=== PATIENT | male | born 1955 | race Caucasian/White ===

== ENCOUNTER 2023-10-10 22:36 | Emergency (ER) | payer MEDICARE, SELFPAY ==
--- NOTE | 2023-10-10 22:36 | ECG_ITS ---
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 Measurements Intervals [place] Rate: 68 P: 32 [place]: 146 QRS: -34 QRSD: 120 T: 58 QT: 389 QTc: 415 Interpretive Statements SINUS RHYTHM LEFT AXIS DEVIATION [QRS AXIS < -30] MODERATE INTRAVENTRICULAR CONDUCTION DELAY [110+ ms QRS DURATION] No previous ECG available for comparison Electronically Signed On 10-11-2023 0:10:06 CDT by Soo Diaz M.D. [email or web address]
--- NOTE | 2023-10-10 22:39 | XRR_ITS ---
PROCEDURE INFORMATION: Exam: XR Chest Exam date and time: 10/10/2023 10:56 PM Age: 68 years old Clinical indication: Angina; Additional info: Cp TECHNIQUE: Imaging protocol: Radiologic exam of the chest. Views: 1 view. COMPARISON: No relevant prior studies available. FINDINGS: Lungs: Unremarkable. No consolidation. Pleural spaces: Unremarkable. No pleural effusion. No pneumothorax. Heart/Mediastinum: Unremarkable. No cardiomegaly. Vasculature: Aortic arch calcifications. Bones/joints: Mild degenerative disease of bilateral acromioclavicular joints. Mild curvature of the thoracic spine convex to the right. XR/XR chest 1V portable [id number] IMPRESSION: No acute cardiopulmonary process.
[2023-10-10 22:40] VITALS: BP 135/74; PULSE 71; RESP 16; TEMP 36.5; O2SAT 95
--- NOTE | 2023-10-10 22:48 | ED_ITS ---
HPI - Chest Pain 2 General: Chief Complaint: Chest Pain Stated Complaint: chest pain and center of back Time Seen by Provider: 10/10/23 22:40 Source: patient Mode of arrival: ambulatory Limitations: no limitations History of Present Illness: 68-year-old male states been having some exertional chest pain throughout the day states left-sided is sharp in nature states he did hurt having worse pain this evening is since improved currently 2 out of 10 he denies any shortness of breath denies any nausea has a history of diabetes he is a non-smoker no known history of coronary artery disease Associated symptoms: Deny abdominal pain, dyspnea, fever(s), nausea or vomiting Review of Systems 2 Const: Denies: fever(s), chills, body aches or change in appetite ENMT: Denies: throat pain or dental pain Card: Reports: chest pain Resp: Denies: dyspnea GI: Denies: abdominal pain, nausea, vomiting or diarrhea Musc: Denies: neck pain or back pain Skin/Breast: Denies: rash Neuro: Denies: headache(s) Physical Exam 2 Const: COMMON NORMALS: no acute distress, patient oriented x3 and healthy appearing HENMT: COMMON NORMALS: normocephalic and atraumatic HEAD & SCALP: n ormocephalic and atraumatic Eye: COMMON NORMALS: Equal, round and reactive pupils present and EOMs intact bilaterally PUPIL: Yes Equal, round and reactive pupils present Neck/C-Spine: COMMON NORMALS: full ROM and supple Chest: COMMONS NORMALS: normal inspection of the chest and normal palpation of entire chest wall Resp: COMMON NORMALS: normal respiratory effort, No retractions, No use of accessory muscles and clear to auscultation bilaterally AUSCULTATION: clear to auscultation bilaterally Cardio: COMMON NORMALS: regular rate, regular rhythm and No murmurs present (Cardio) RATE: regular rate RHYTHM: regular rhythm GI: COMMON NORMALS: Normal to inspection, nondistended, normoactive bowel sounds present, Soft to palpation, non-tender and no masses PALPATION: Yes Soft to palpation Extremity: COMMON NORMALS: normal to inspection and full ROM Neuro: COMMON NORMALS: patient oriented x3, moves all extremities and no focal motor deficits Psych: COMMON NORMALS: mental status grossly normal, Normal thought process present and cooperative THOUGHT PROCESS: Normal thought process present Skin: COMMON NORMALS: no rashes or lesions noted and no wounds GENERAL SKIN EXAM: no rashes or lesions noted Course 2 Vital Signs: Vital signs: Vital Signs Temperature 97.7 F 10/10/23 22:40 Pulse Rate 60 10/11/23 00:56 Respiratory Rate 18 10/11/23 00:56 Blood Pressure 129/70 10/11/23 00:56 Pulse Oximetry 95 10/11/23 00:56 Oxygen Delivery Me thod Room Air 10/11/23 00:56 MDM - Chest Pain Medical Decision Making Patient presents for chest pain is had no chest pain here initial repeat troponins here are negative he has no signs of pulmonary embolism or aortic dissection he is stable for discharge she is follow-up with PCP he is return if worsening he understands agrees to plan. Medical Records I reviewed the patient's medical records. Lab Data I reviewed the patient's lab results. 10/10/23 22:57 10/10/23 22:57 Radiology Impressions Chest X-Ray 10/10/23 22:39 IMPRESSION: No acute cardiopulmonary process. Laboratory Results WBC 6.93 10^3/uL (3.29-11.43) 10/10/23 22:57 RBC 4.29 10^6/uL (3.85-5.65) 10/10/23 22:57 Hgb 12.40 g/dL (11.27-16.99) 10/10/23 22:57 Hct 37.6 % (37-53) 10/10/23 22:57 MCV 87.6 fl (82-101) 10/10/23 22:57 MCH 28.9 pg (27-33) 10/10/23 22:57 MCHC 33.0 g/dL (30-55) 10/10/23 22:57 RDW 12.6 % (12.1-15.1) 10/10/23 22:57 Plt Count 238 10^3/cmm (157-399) 10/10/23 22:57 MPV 9.4 fL (7.4-10.4) 10/10/23 22:57 Neut % (Auto) 44.3 % 10/10/23 22:57 Lymph % (Auto) 36.8 % 10/10/23 22:57 [place] % (Auto) 10.8 % 10/10/23 22:57 Eos % (Auto) 5.9 % 10/10/23 22:57 Baso % (Auto) 0.6 % 10/10/23 22:57 Neut # (Auto) 3.07 10^3/uL (1.8-7.7) 10/10/23 22:57 Lymph # (Auto) 2.6 10^3/uL (0.8-4.8) 10/10/23 22:57 [place] # (Auto) 0.8 10^3/uL (0.2-0.9) 10/10/23 22:57 Eos # (Auto) 0.4 10^3/uL (0.0-0.8) 10/10/23 22:57 Baso # (Auto) 0.0 10^3/uL (0.0-0.1) 10/10/23 22:57 Nucleated RBC % (auto) 0 % 10/10/23 22:57 Nucleated RBCs # 0.0 /100WBC 10/10/23 22:57 Sodium 134 mmol/L (136-145) L 10/10/23 22:57 Potassium 3.6 mmol/L (3.5-5.1) 10/10/23 22:57 Chloride 97 mmol/L (98-107) L 10/10/23 22:57 Carbon Dioxide 26 mmol/L (22-29) 10/10/23 22:57 Anion Gap 14.6 (5-19) 10/10/23 22:57 BUN 11 mg/dL (8-23) 10/10/23 22:57 Creatinine 1.0 mg/dL (0.7-1.2) 10/10/23 22:57 GFR Calculation 74.5 mL/min (90-130) L 10/10/23 22:57 Glucose 167 mg/dL (65-115) H 10/10/23 22:57 Calculated Osmolality 281 mOsm/kg (285-295) L 10/10/23 22:57 Calcium 9.2 mg/dL (8.5-10.5) 10/10/23 22:57 Total Bilirubin 0.3 mg/dL (0.15-1.2) 10/10/23 22:57 AST 13 U/L (0-40) 10/10/23 22:57 ALT 12 U/L (0-41) 10/10/23 22:57 Alkaline Phosphatase 83 U/L (40-130) 10/10/23 22:57 Troponin T Baseline 10 ng/L (0-15) 10/10/23 22:57 Troponin T 120 Minute 9.23 ng/L (0-15) 10/11/23 00:26 Delta Troponin T -0.77 ABS# (0-10) L 10/11/23 00:26 Total Protein 6.4 g/dL (6.6-8.7) L 10/10/23 22:57 Albumin 4.1 g/dL (3.5-5.2) 10/10/23 22:57 Globulin 2.3 g/dL (1.3-4.6) 10/10/23 22:57 Lipase 43 U/L (13-60) 10/10/23 22:57 All radiology interpretation(s) finalized by discharge EKG Data EKG 1: I personally reviewed and interpreted this EKG as follows: EKG interpretation date: 10/10/23 EKG interpretation time: 22:36 Interpretation: nsr hr [address] or t wave abnormalities qrs 120 qtc 406 EKG 2: I personally reviewed and interpreted this EKG as follows: EKG interpretation date: 10/11/23 EKG interpretation time: 00:40 Interpretation: sinus marcela hr [address] elevation qrs 120 qtc 421 Discharge Plan Discharge Patient Disposition: Home Clinical Impression: Chest pain Condition: Stable Discharge Orders: Discharge ED (Routine); Ordered 10/11/23 Ordered By: Bill Cruz Referrals: Ryanne Estrella MD [Family Provider] - Kay Bills FNP [Primary Care Provider] - 1-3 days Discharge Diet: Advance as tolerated Discharge Activity: Resume usual activity Patient Instructions: Chest Pain (ED) Coding Level of Care Code ED [employer] Teacher for Gio Molina
[2023-10-10] MEDS: aspirin 81 mg Chew Tablet 324 MG PO (22:52)
[2023-10-10 22:59] VITALS: BP 130/71; PULSE 74; RESP 21; O2SAT 95
[2023-10-10 23:04] LABS: Basophils % 0.6 %; Eosinophils # 0.4 10^3/uL (0.0-0.8); Eosinophils % 5.9 %; Hematocrit 37.6 % (37-53); Lymphocytes # 2.6 10^3/uL (0.8-4.8); Lymphocytes % 36.8 %; Mean Corpuscular Hemoglobin 28.9 pg (27-33); Mean Corpuscular Volume 87.6 fl (82-101); Mean Platelet Volume 9.4 fL (7.4-10.4); Monocytes # 0.8 10^3/uL (0.2-0.9); Monocytes % 10.8 %; Neutrophils # 3.07 10^3/uL (1.8-7.7); Neutrophils % 44.3 %; Nucleated Red Blood Cells % 0 %; Platelet Count 238 10^3/cmm (157-399); Red Blood Count 4.29 10^6/uL (3.85-5.65); Red Cell Distribution Width 12.6 % (12.1-15.1); White Blood Count 6.93 10^3/uL (3.29-11.43)
[2023-10-10 23:22] LABS: Troponin(5th) Baseline 10 ng/L (0-15)
[2023-10-10 23:42] LABS: Alanine Aminotransferase 12 U/L (0-41); Albumin Level 4.1 g/dL (3.5-5.2); Alkaline Phosphatase 83 U/L (40-130); Anion Gap 14.6 (5-19); Aspartate Amino Transferase 13 U/L (0-40); Blood Urea Nitrogen 11 mg/dL (8-23); Calcium 9.2 mg/dL (8.5-10.5); Carbon Dioxide 26 mmol/L (22-29); Chloride 97 mmol/L (98-107); Globulin 2.3 g/dL (1.3-4.6); Glomerular Filtration Rate 74.5 mL/min (90-130); Glucose 167 mg/dL (65-115); Lipase 43 U/L (13-60); Osmolality Calculated 281 mOsm/kg (285-295); Potassium 3.6 mmol/L (3.5-5.1); Sodium 134 mmol/L (136-145); Total Bilirubin 0.3 mg/dL (0.15-1.2); Total Protein 6.4 g/dL (6.6-8.7)
--- NOTE | 2023-10-11 00:39 | ECG_ITS ---
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 Measurements Intervals [place] Rate: 58 P: 35 [place]: 155 QRS: -28 QRSD: 120 T: 32 QT: 425 QTc: 418 Interpretive Statements SINUS BRADYCARDIA BORDERLINE LEFT AXIS DEVIATION [QRS AXIS < -20] MODERATE INTRAVENTRICULAR CONDUCTION DELAY [110+ ms QRS DURATION] Compared to ECG 10/10/2023 22:36:03 No significant change Electronically Signed On 10-11-2023 8:20:24 CDT by Justin Ryder M.D. [id number]
[2023-10-11 00:52] LABS: Troponin 5 2HR 9.23 ng/L (0-15)
[2023-10-11 00:56] VITALS: BP 129/70; PULSE 60; RESP 18; O2SAT 95
[2023-10-11 00:58] LABS: Troponin 5 2HR Delta -0.77 ABS# (0-10)
== END 2023-10-11 01:15 | disposition home or self-care (01) ==
PROVIDERS: Emergency Provider Emergency Medicine; Family Provider Internal Medicine; PCP Nurse Practitioner Family
DX: R07.9 Chest pain, unspecified (principal)
CPT/HCPCS: 36415; 71045; 80053; 83690; 84484; 85025; 93005; 99285